=== PATIENT | female | born 1950 | race Caucasian/White ===

== ENCOUNTER 2018-03-02 00:39 | Outpatient (RCR) | payer BC, MEDICARE, SELFPAY ==
[2018-02-16] MEDS: Heparin 500 UNITS/5 ML SYRINGE IV (09:42)
[2018-02-16] MEDS: Normal Saline Flush 10 ML SYR IVP (09:43)
[2018-02-16 14:10] LABS: Abs Immature Grans 0.02 k/cumm (0.0-0.09); Absolute Basophil Count 0.02 k/cumm (0.0-0.2); Absolute Eosinophil Count 0.17 k/cumm (0.0-0.7); Absolute Lymphocyte Count 1.46 k/cumm (1.2-3.4); Absolute Monocyte Count 0.57 k/cumm (0.11-0.7); Absolute Neutrophil Count 4.63 k/cumm (1.2-6.7); Basophils % 0.3; Eosinophils % 2.5; HCT 34.3 % (36.0-46.0); HGB 11.2 g/dL (12.0-15.5); Immature Grans % 0.3; Lymphocytes % 21.3; Mean Corp. HGB Concentration 32.7 g/dL (32.0-36.0); Mean Corpuscular Hemoglobin 30.4 pg (27.0-33.0); Mean Corpuscular Volume 93.2 fL (80-95); Mean Platelet Volume 9.1 fL (8.0-11.0); Monocytes % 8.3; Neutrophils % 67.3; Platelet Count 298 x1000/uL (130-400); RBC 3.68 m/cumm (4.00-5.20); RBC Distribution Width 14.4 % (11.7-14.6); White Blood Cell Count 6.87 k/cumm (4.4-10.8)
[2018-02-16 14:25] LABS: ALT 47 U/L (12-78); AST 33 U/L (15-37); Albumin 3.7 g/dL (3.4-5.0); Alkaline Phosphatase 101 U/L (46-116); Anion Gap 9.2 mmol/L (3-11); BUN 9 mg/dL (7-18); Bilirubin, Total 0.3 mg/dL (0.2-1.0); CO2 24.8 mmol/L (21.0-32.0); CREATININE 0.81 mg/dL (0.55-1.02); Calcium 9.5 mg/dL (8.5-10.1); Chloride 100 mmol/L (98-107); Glucose 139 mg/dL (70-100); Potassium 3.7 mmol/L (3.5-5.1); Sodium 134 mmol/L (136-145); Total Protein 8.3 g/dL (6.4-8.2)
[2018-02-19 11:56] LABS: CA 19-9 18 U/mL (<35)
[2018-03-02] MEDS: Heparin 500 UNITS/5 ML SYRINGE IV (13:25)
[2018-03-02] MEDS: Normal Saline Flush 10 ML SYR IVP (13:25)
[2018-03-02 13:58] LABS: Abs Immature Grans 0.02 k/cumm (0.0-0.09); Absolute Basophil Count 0.02 k/cumm (0.0-0.2); Absolute Lymphocyte Count 1.13 k/cumm (1.2-3.4); Absolute Monocyte Count 0.42 k/cumm (0.11-0.7); Absolute Neutrophil Count 4.24 k/cumm (1.2-6.7); Basophils % 0.3; Eosinophils % 3.3; HCT 34.2 % (36.0-46.0); HGB 11.1 g/dL (12.0-15.5); Immature Grans % 0.3; Lymphocytes % 18.7; Mean Corp. HGB Concentration 32.5 g/dL (32.0-36.0); Mean Corpuscular Hemoglobin 30.2 pg (27.0-33.0); Mean Corpuscular Volume 93.2 fL (80-95); Mean Platelet Volume 9.8 fL (8.0-11.0); Neutrophils % 70.4; Platelet Count 239 x1000/uL (130-400); RBC 3.67 m/cumm (4.00-5.20); RBC Distribution Width 14.3 % (11.7-14.6); White Blood Cell Count 6.03 k/cumm (4.4-10.8)
[2018-03-02 14:15] LABS: ALT 56 U/L (12-78); AST 34 U/L (15-37); Albumin 3.5 g/dL (3.4-5.0); Alkaline Phosphatase 108 U/L (46-116); Anion Gap 10.4 mmol/L (3-11); BUN 11 mg/dL (7-18); Bilirubin, Total 0.3 mg/dL (0.2-1.0); CO2 24.6 mmol/L (21.0-32.0); CREATININE 0.83 mg/dL (0.55-1.02); Chloride 105 mmol/L (98-107); Glucose 144 mg/dL (70-100); Potassium 3.9 mmol/L (3.5-5.1); Sodium 140 mmol/L (136-145); Total Protein 7.3 g/dL (6.4-8.2)
== END 2018-03-11 23:59 | disposition home or self-care (01) ==
LOC: INF 00:39
PROVIDERS: Visit Provider Internal Medicine Hematology & Oncology
DX: C25.0 Malignant neoplasm of head of pancreas (principal); Z45.2 Encounter for adjustment and management of vascular access device
CPT/HCPCS: 36591; 80053; 85025; 86301

== ENCOUNTER 2018-03-30 02:02 | Outpatient (RCR) | payer BC, MEDICARE, SELFPAY ==
[2018-03-16] MEDS: Normal Saline Flush 10 ML SYR IVP (11:00)
[2018-03-16] MEDS: Heparin 500 UNITS/5 ML SYRINGE IV (11:05)
[2018-03-16 11:40] LABS: Abs Immature Grans 0.09 k/cumm (0.0-0.09); HGB 11.2 g/dL (12.0-15.5); Mean Corp. HGB Concentration 33.9 g/dL (32.0-36.0); Mean Corpuscular Hemoglobin 30.3 pg (27.0-33.0); Mean Corpuscular Volume 89.2 fL (80-95); Mean Platelet Volume 10.2 fL (8.0-11.0); Platelet Count 131 x1000/uL (130-400); RBC Distribution Width 13.6 % (11.7-14.6); White Blood Cell Count 8.05 k/cumm (4.4-10.8)
[2018-03-16 11:46] LABS: ALT 59 U/L (12-78); AST 31 U/L (15-37); Albumin 3.7 g/dL (3.4-5.0); Alkaline Phosphatase 101 U/L (46-116); Anion Gap 13.4 mmol/L (3-11); BUN 11 mg/dL (7-18); Bilirubin, Total 0.2 mg/dL (0.2-1.0); CO2 22.6 mmol/L (21.0-32.0); CREATININE 0.92 mg/dL (0.55-1.02); Calcium 8.9 mg/dL (8.5-10.1); Chloride 100 mmol/L (98-107); Glucose 146 mg/dL (70-100); Potassium 3.3 mmol/L (3.5-5.1); Sodium 136 mmol/L (136-145); Total Protein 7.3 g/dL (6.4-8.2)
[2018-03-16 11:58] LABS: Absolute Eosinophil Count 0.24 k/cumm (0.0-0.7); Absolute Lymphocyte Count 1.93 k/cumm (1.2-3.4); Absolute Monocyte Count 1.05 k/cumm (0.11-0.7); Absolute Neutrophil Count 4.75 k/cumm (1.2-6.7); Atypical Lymphocytes % 3
[2018-03-16 11:59] LABS: Diff Comment Manual Differential; RBC Morphology Normal
[2018-03-19 11:39] LABS: CA 19-9 43 U/mL (<35)
[2018-03-30] MEDS: Heparin 500 UNITS/5 ML SYRINGE IV (10:20)
[2018-03-30] MEDS: Normal Saline Flush 10 ML SYR IVP (10:20)
[2018-03-30 10:41] LABS: HCT 32.1 % (36.0-46.0); HGB 10.8 g/dL (12.0-15.5); Mean Corp. HGB Concentration 33.6 g/dL (32.0-36.0); Mean Corpuscular Hemoglobin 30.3 pg (27.0-33.0); Mean Corpuscular Volume 89.9 fL (80-95); Mean Platelet Volume 10.5 fL (8.0-11.0); Platelet Count 167 x1000/uL (130-400); RBC 3.57 m/cumm (4.00-5.20); RBC Distribution Width 14.8 % (11.7-14.6); White Blood Cell Count 8.45 k/cumm (4.4-10.8)
[2018-03-30 10:42] LABS: Abs Immature Grans 0.12 k/cumm (0.0-0.09)
[2018-03-30 10:58] LABS: ALT 84 U/L (12-78); AST 53 U/L (15-37); Albumin 3.5 g/dL (3.4-5.0); Alkaline Phosphatase 114 U/L (46-116); Anion Gap 13.5 mmol/L (3-11); BUN 9 mg/dL (7-18); Bilirubin, Total 0.2 mg/dL (0.2-1.0); CO2 23.5 mmol/L (21.0-32.0); CREATININE 0.92 mg/dL (0.55-1.02); Calcium 9.2 mg/dL (8.5-10.1); Chloride 101 mmol/L (98-107); Glucose 152 mg/dL (70-100); Potassium 3.5 mmol/L (3.5-5.1); Sodium 138 mmol/L (136-145); Total Protein 7.5 g/dL (6.4-8.2)
[2018-03-30 11:07] LABS: Absolute Lymphocyte Count 1.69 k/cumm (1.2-3.4); Absolute Neutrophil Count 5.66 k/cumm (1.2-6.7); Atypical Lymphocytes % 2; Nucleated RBC 1 /100WBC
[2018-03-30 11:08] LABS: Anisocytosis 1+; Diff Comment Manual Differential; Polychromasia Present
== END 2018-04-11 23:59 | disposition home or self-care (01) ==
LOC: INF 02:02
PROVIDERS: Visit Provider Internal Medicine Hematology & Oncology
DX: C25.0 Malignant neoplasm of head of pancreas (principal); Z45.2 Encounter for adjustment and management of vascular access device
CPT/HCPCS: 36591; 80053; 85025; 86301

== ENCOUNTER 2018-05-04 00:48 | Outpatient (RCR) | payer BC, MEDICARE, SELFPAY ==
[2018-04-13] MEDS: Normal Saline Flush 10 ML SYR IVP (12:29)
[2018-04-13] MEDS: Heparin 500 UNITS/5 ML SYRINGE IV (12:30)
[2018-04-13 12:37] LABS: Abs Immature Grans 0.23 k/cumm (0.0-0.09); Absolute Basophil Count 0.02 k/cumm (0.0-0.2); Absolute Eosinophil Count 0.02 k/cumm (0.0-0.7); Absolute Lymphocyte Count 1.22 k/cumm (1.2-3.4); Absolute Monocyte Count 1.47 k/cumm (0.11-0.7); Absolute Neutrophil Count 7.61 k/cumm (1.2-6.7); Basophils % 0.2; Eosinophils % 0.2; HCT 30.1 % (36.0-46.0); HGB 10.2 g/dL (12.0-15.5); Immature Grans % 2.2; Lymphocytes % 11.5; Mean Corp. HGB Concentration 33.9 g/dL (32.0-36.0); Mean Corpuscular Hemoglobin 31.1 pg (27.0-33.0); Mean Corpuscular Volume 91.8 fL (80-95); Monocytes % 13.9; Platelet Count 123 x1000/uL (130-400); RBC 3.28 m/cumm (4.00-5.20); RBC Distribution Width 16.6 % (11.7-14.6); White Blood Cell Count 10.57 k/cumm (4.4-10.8)
[2018-04-13 12:48] LABS: ALT 66 U/L (12-78); AST 36 U/L (15-37); Albumin 3.2 g/dL (3.4-5.0); Alkaline Phosphatase 126 U/L (46-116); BUN 8 mg/dL (7-18); Bilirubin, Total 0.2 mg/dL (0.2-1.0); CREATININE 0.96 mg/dL (0.55-1.02); Calcium 9.3 mg/dL (8.5-10.1); Chloride 99 mmol/L (98-107); Estimated GFR 57.97 (mL/min/1.73m2); Glucose 145 mg/dL (70-100); Potassium 3.5 mmol/L (3.5-5.1); Sodium 134 mmol/L (136-145); Total Protein 6.7 g/dL (6.4-8.2)
[2018-04-13 13:34] LABS: Diff Comment Agrees w/ Instrument
[2018-04-16 10:18] LABS: CA 19-9 36 U/mL (<35)
[2018-04-20] MEDS: Heparin 500 UNITS/5 ML SYRINGE IV (14:15)
[2018-04-20] MEDS: Normal Saline Flush 10 ML SYR IVP (14:15)
[2018-04-20 14:42] LABS: Abs Immature Grans 0.14 k/cumm (0.0-0.09); Absolute Basophil Count 0.02 k/cumm (0.0-0.2); Absolute Eosinophil Count 0.09 k/cumm (0.0-0.7); Absolute Lymphocyte Count 1.21 k/cumm (1.2-3.4); Absolute Monocyte Count 0.98 k/cumm (0.11-0.7); Absolute Neutrophil Count 7.37 k/cumm (1.2-6.7); Basophils % 0.2; Eosinophils % 0.9; HCT 29.7 % (36.0-46.0); HGB 9.7 g/dL (12.0-15.5); Immature Grans % 1.4; Lymphocytes % 12.3; Mean Corp. HGB Concentration 32.7 g/dL (32.0-36.0); Mean Corpuscular Volume 94.9 fL (80-95); Mean Platelet Volume 10.4 fL (8.0-11.0); Neutrophils % 75.2; Platelet Count 217 x1000/uL (130-400); RBC 3.13 m/cumm (4.00-5.20); RBC Distribution Width 19.2 % (11.7-14.6); White Blood Cell Count 9.81 k/cumm (4.4-10.8)
[2018-04-20 14:58] LABS: ALT 118 U/L (12-78); AST 72 U/L (15-37); Albumin 2.8 g/dL (3.4-5.0); Alkaline Phosphatase 143 U/L (46-116); Anion Gap 8.9 mmol/L (3-11); BUN 8 mg/dL (7-18); Bilirubin, Total 0.2 mg/dL (0.2-1.0); CO2 24.1 mmol/L (21.0-32.0); Calcium 8.7 mg/dL (8.5-10.1); Chloride 104 mmol/L (98-107); Glucose 132 mg/dL (70-100); Potassium 4.1 mmol/L (3.5-5.1); Sodium 137 mmol/L (136-145); Total Protein 6.2 g/dL (6.4-8.2)
[2018-04-23 12:42] LABS: CA 19-9 54 U/mL (<35)
[2018-05-04] MEDS: Heparin 500 UNITS/5 ML SYRINGE IV (14:40)
[2018-05-04] MEDS: Normal Saline Flush 10 ML SYR IVP (14:40)
[2018-05-04 14:48] LABS: HGB 9.4 g/dL (12.0-15.5); Mean Corp. HGB Concentration 32.4 g/dL (32.0-36.0); Mean Corpuscular Hemoglobin 31.2 pg (27.0-33.0); Mean Corpuscular Volume 96.3 fL (80-95); Mean Platelet Volume 11.2 fL (8.0-11.0); RBC 3.01 m/cumm (4.00-5.20); RBC Distribution Width 18.6 % (11.7-14.6); White Blood Cell Count 6.72 k/cumm (4.4-10.8)
[2018-05-04 15:02] LABS: ALT 72 U/L (12-78); AST 37 U/L (15-37); Albumin 3.1 g/dL (3.4-5.0); Alkaline Phosphatase 148 U/L (46-116); Anion Gap 12.8 mmol/L (3-11); BUN 6 mg/dL (7-18); Bilirubin, Total 0.2 mg/dL (0.2-1.0); CO2 21.2 mmol/L (21.0-32.0); CREATININE 0.68 mg/dL (0.55-1.02); Calcium 8.4 mg/dL (8.5-10.1); Chloride 104 mmol/L (98-107); Glucose 115 mg/dL (70-100); Potassium 3.4 mmol/L (3.5-5.1); Sodium 138 mmol/L (136-145); Total Protein 6.7 g/dL (6.4-8.2)
[2018-05-04 15:23] LABS: Absolute Neutrophil Count 5.38 k/cumm (1.2-6.7); Platelet Count 95 x1000/uL (130-400)
[2018-05-04 15:24] LABS: Absolute Eosinophil Count 0.13 k/cumm (0.0-0.7); Diff Comment Manual Differential; Poikilocytes 1+; Polychromasia Present
[2018-05-07 10:51] LABS: CA 19-9 45 U/mL (<35)
== END 2018-05-11 23:59 | disposition home or self-care (01) ==
LOC: INF 00:48
PROVIDERS: Visit Provider Internal Medicine Hematology & Oncology
DX: C25.0 Malignant neoplasm of head of pancreas (principal); Z45.2 Encounter for adjustment and management of vascular access device
CPT/HCPCS: 36591; 80053; 85025; 86301

== ENCOUNTER 2018-07-06 00:58 | Outpatient (RCR) | payer MEDICARE, SELFPAY ==
[2018-07-06] MEDS: Normal Saline Flush 10 ML SYR IVP (14:29)
[2018-07-06] MEDS: Heparin 500 UNITS/5 ML SYRINGE IV (14:29)
[2018-07-06 14:57] LABS: Abs Immature Grans 0.01 k/cumm (0.0-0.09); Absolute Basophil Count 0.03 k/cumm (0.0-0.2); Absolute Eosinophil Count 0.06 k/cumm (0.0-0.7); Absolute Lymphocyte Count 1.36 k/cumm (1.2-3.4); Absolute Neutrophil Count 3.54 k/cumm (1.2-6.7); Basophils % 0.5; Eosinophils % 1.1; HCT 33.2 % (36.0-46.0); Immature Grans % 0.2; Lymphocytes % 24.7; Mean Corp. HGB Concentration 33.1 g/dL (32.0-36.0); Mean Corpuscular Hemoglobin 32.4 pg (27.0-33.0); Mean Corpuscular Volume 97.6 fL (80-95); Mean Platelet Volume 10.8 fL (8.0-11.0); Monocytes % 9.1; Neutrophils % 64.4; Platelet Count 201 x1000/uL (130-400); RBC Distribution Width 13.4 % (11.7-14.6)
[2018-07-06 15:10] LABS: ALT 62 U/L (12-78); AST 86 U/L (15-37); Albumin 2.9 g/dL (3.4-5.0); Alkaline Phosphatase 156 U/L (46-116); Anion Gap 11.7 mmol/L (3-11); BUN 7 mg/dL (7-18); Bilirubin, Total 0.4 mg/dL (0.2-1.0); CO2 23.3 mmol/L (21.0-32.0); CREATININE 0.68 mg/dL (0.55-1.02); Calcium 8.8 mg/dL (8.5-10.1); Chloride 104 mmol/L (98-107); Glucose 99 mg/dL (70-100); Potassium 4.1 mmol/L (3.5-5.1); Sodium 139 mmol/L (136-145); Total Protein 6.9 g/dL (6.4-8.2)
[2018-07-09 10:46] LABS: CA 19-9 109 U/mL (<35)
== END 2018-07-12 23:59 | disposition home or self-care (01) ==
LOC: INF 00:58
PROVIDERS: Visit Provider Internal Medicine Hematology & Oncology
DX: C25.0 Malignant neoplasm of head of pancreas (principal); Z45.2 Encounter for adjustment and management of vascular access device
CPT/HCPCS: 36591; 80053; 85025; 86301

== ENCOUNTER 2018-08-31 01:32 | Outpatient (RCR) | payer MEDICARE, SELFPAY | END 2018-09-09 23:59 | disposition home or self-care (01) | LOC: INF 01:32 | PROVIDERS: Visit Provider Internal Medicine Hematology & Oncology | DX: R69 Illness, unspecified (principal) ==

== ENCOUNTER 2018-09-20 00:55 | Outpatient (RCR) | payer MEDICARE, SELFPAY ==
[2018-09-20] MEDS: Heparin 500 UNITS/5 ML SYRINGE IV (14:56)
[2018-09-20 15:08] LABS: Abs Immature Grans 0.01 k/cumm (0.0-0.09); Absolute Basophil Count 0.02 k/cumm (0.0-0.2); Absolute Eosinophil Count 0.08 k/cumm (0.0-0.7); Absolute Monocyte Count 0.48 k/cumm (0.11-0.7); Absolute Neutrophil Count 2.73 k/cumm (1.2-6.7); Basophils % 0.4; Eosinophils % 1.8; HCT 33.8 % (36.0-46.0); HGB 11.2 g/dL (12.0-15.5); Immature Grans % 0.2; Lymphocytes % 26.5; Mean Corp. HGB Concentration 33.1 g/dL (32.0-36.0); Mean Corpuscular Hemoglobin 31.4 pg (27.0-33.0); Mean Corpuscular Volume 94.7 fL (80-95); Mean Platelet Volume 10.3 fL (8.0-11.0); Monocytes % 10.6; Neutrophils % 60.5; Platelet Count 188 x1000/uL (130-400); RBC 3.57 m/cumm (4.00-5.20); RBC Distribution Width 12.4 % (11.7-14.6); White Blood Cell Count 4.52 k/cumm (4.4-10.8)
[2018-09-20 15:24] LABS: ALT 96 U/L (12-78); AST 62 U/L (15-37); Albumin 3.7 g/dL (3.4-5.0); Alkaline Phosphatase 154 U/L (46-116); Anion Gap 11.5 mmol/L (3-11); BUN 12 mg/dL (7-18); Bilirubin, Total 0.3 mg/dL (0.2-1.0); CO2 22.5 mmol/L (21.0-32.0); CREATININE 0.77 mg/dL (0.55-1.02); Calcium 8.5 mg/dL (8.5-10.1); Chloride 104 mmol/L (98-107); Glucose 191 mg/dL (70-100); Potassium 3.7 mmol/L (3.5-5.1); Sodium 138 mmol/L (136-145); Total Protein 7.4 g/dL (6.4-8.2)
[2018-09-20 16:26] LABS: Hemoglobin A1C 6.8 % (4.5-6.2)
[2018-09-21 11:54] LABS: CA 19-9 2964 U/mL (<35)
== END 2018-10-09 23:59 | disposition home or self-care (01) ==
LOC: INF 00:55
PROVIDERS: Visit Provider Internal Medicine Hematology & Oncology
DX: C25.0 Malignant neoplasm of head of pancreas (principal); Z45.2 Encounter for adjustment and management of vascular access device
CPT/HCPCS: 36591; 80053; 83036; 85025; 86301

== ENCOUNTER 2019-02-01 03:07 | Outpatient (RCR) | payer MEDICARE, BC, SELFPAY ==
[2019-01-11] MEDS: Normal Saline Flush 10 ML SYR IVP (08:30)
[2019-01-11 09:02] LABS: Abs Immature Grans 0.05 k/cumm (0.0-0.09); Absolute Basophil Count 0.01 k/cumm (0.0-0.2); Absolute Eosinophil Count 0.08 k/cumm (0.0-0.7); Absolute Lymphocyte Count 0.82 k/cumm (1.2-3.4); Absolute Monocyte Count 0.68 k/cumm (0.11-0.7); Basophils % 0.1; Eosinophils % 0.6; HCT 37.3 % (36.0-46.0); HGB 12.2 g/dL (12.0-15.5); Immature Grans % 0.4; Lymphocytes % 5.9; Mean Corp. HGB Concentration 32.7 g/dL (32.0-36.0); Mean Corpuscular Hemoglobin 31.3 pg (27.0-33.0); Mean Corpuscular Volume 95.6 fL (80-95); Mean Platelet Volume 10.4 fL (8.0-11.0); Monocytes % 4.9; Neutrophils % 88.1; Platelet Count 237 x1000/uL (130-400); RBC Distribution Width 14.6 % (11.7-14.6); White Blood Cell Count 13.95 k/cumm (4.4-10.8)
[2019-01-11 09:03] LABS: Absolute Neutrophil Count 12.29 k/cumm (1.2-6.7)
[2019-01-11 09:20] LABS: ALT 94 U/L (12-78); AST 35 U/L (15-37); Albumin 3.4 g/dL (3.4-5.0); Alkaline Phosphatase 146 U/L (46-116); Anion Gap 9.2 mmol/L (3-11); BUN 11 mg/dL (7-18); Bilirubin, Total 0.7 mg/dL (0.2-1.0); CO2 26.8 mmol/L (21.0-32.0); CREATININE 0.71 mg/dL (0.55-1.02); Calcium 8.9 mg/dL (8.5-10.1); Chloride 99 mmol/L (98-107); Glucose 184 mg/dL (70-100); Potassium 4.3 mmol/L (3.5-5.1); Sodium 135 mmol/L (136-145); Total Protein 7.2 g/dL (6.4-8.2)
[2019-01-18] MEDS: Normal Saline Flush 10 ML SYR IVP (12:20)
[2019-01-18 12:45] LABS: Abs Immature Grans 0.02 k/cumm (0.0-0.09); Absolute Basophil Count 0.01 k/cumm (0.0-0.2); Absolute Eosinophil Count 0.02 k/cumm (0.0-0.7); Absolute Lymphocyte Count 0.49 k/cumm (1.2-3.4); Absolute Neutrophil Count 3.15 k/cumm (1.2-6.7); Basophils % 0.3; Eosinophils % 0.5; HCT 31.3 % (36.0-46.0); HGB 10.6 g/dL (12.0-15.5); Immature Grans % 0.5; Lymphocytes % 12.3; Mean Corp. HGB Concentration 33.9 g/dL (32.0-36.0); Mean Corpuscular Hemoglobin 31.5 pg (27.0-33.0); Mean Corpuscular Volume 92.9 fL (80-95); Mean Platelet Volume 11.8 fL (8.0-11.0); Monocytes % 7.5; Neutrophils % 78.9; Platelet Count 102 x1000/uL (130-400); RBC 3.37 m/cumm (4.00-5.20); RBC Distribution Width 13.8 % (11.7-14.6); White Blood Cell Count 3.99 k/cumm (4.4-10.8)
[2019-01-18 13:02] LABS: ALT 77 U/L (12-78); AST 31 U/L (15-37); Albumin 2.9 g/dL (3.4-5.0); Alkaline Phosphatase 146 U/L (46-116); Anion Gap 14.5 mmol/L (3-11); BUN 7 mg/dL (7-18); Bilirubin, Total 0.4 mg/dL (0.2-1.0); CO2 20.5 mmol/L (21.0-32.0); CREATININE 0.77 mg/dL (0.55-1.02); Calcium 9.1 mg/dL (8.5-10.1); Chloride 100 mmol/L (98-107); Glucose 192 mg/dL (70-100); Potassium 3.5 mmol/L (3.5-5.1); Sodium 135 mmol/L (136-145); Total Protein 7.1 g/dL (6.4-8.2)
[2019-01-21 14:01] LABS: CA 19-9 35027 U/mL (<35)
[2019-02-01] MEDS: Normal Saline Flush 10 ML SYR IVP (08:45)
[2019-02-01 09:08] LABS: Abs Immature Grans 0.05 k/cumm (0.0-0.09); Absolute Basophil Count 0.03 k/cumm (0.0-0.2); Absolute Eosinophil Count 0.02 k/cumm (0.0-0.7); Absolute Lymphocyte Count 0.82 k/cumm (1.2-3.4); Absolute Monocyte Count 0.72 k/cumm (0.11-0.7); Absolute Neutrophil Count 2.99 k/cumm (1.2-6.7); Basophils % 0.6; Eosinophils % 0.4; Immature Grans % 1.1; Lymphocytes % 17.7; Mean Corp. HGB Concentration 32.4 g/dL (32.0-36.0); Mean Corpuscular Hemoglobin 31.2 pg (27.0-33.0); Mean Corpuscular Volume 96.1 fL (80-95); Mean Platelet Volume 10.4 fL (8.0-11.0); Monocytes % 15.6; Neutrophils % 64.6; Platelet Count 309 x1000/uL (130-400); RBC 3.85 m/cumm (4.00-5.20); RBC Distribution Width 16.2 % (11.7-14.6); White Blood Cell Count 4.63 k/cumm (4.4-10.8)
[2019-02-01 09:16] LABS: ALT 42 U/L (12-78); AST 36 U/L (15-37); Albumin 3.1 g/dL (3.4-5.0); Alkaline Phosphatase 138 U/L (46-116); Anion Gap 13.3 mmol/L (3-11); BUN 7 mg/dL (7-18); Bilirubin, Total 0.6 mg/dL (0.2-1.0); CO2 23.7 mmol/L (21.0-32.0); CREATININE 0.71 mg/dL (0.55-1.02); Calcium 8.5 mg/dL (8.5-10.1); Chloride 102 mmol/L (98-107); Glucose 194 mg/dL (70-100); Potassium 3.5 mmol/L (3.5-5.1); Sodium 139 mmol/L (136-145); Total Protein 6.8 g/dL (6.4-8.2)
== END 2019-02-09 23:59 | disposition home or self-care (01) ==
LOC: INF 03:07
PROVIDERS: Visit Provider Internal Medicine Hematology & Oncology
DX: C25.0 Malignant neoplasm of head of pancreas (principal); Z45.2 Encounter for adjustment and management of vascular access device
CPT/HCPCS: 36591; 80053; 85025; 86301

== ENCOUNTER 2019-03-01 03:09 | Outpatient (RCR) | payer MEDICARE, BC, SELFPAY ==
[2019-02-15] MEDS: Normal Saline Flush 10 ML SYR IVP (07:43)
[2019-02-15 07:51] LABS: Abs Immature Grans 0.03 k/cumm (0.0-0.09); Absolute Basophil Count 0.02 k/cumm (0.0-0.2); Absolute Eosinophil Count 0.07 k/cumm (0.0-0.7); Absolute Lymphocyte Count 0.71 k/cumm (1.2-3.4); Absolute Monocyte Count 0.75 k/cumm (0.11-0.7); Absolute Neutrophil Count 7.83 k/cumm (1.2-6.7); Basophils % 0.2; Eosinophils % 0.7; HGB 12.3 g/dL (12.0-15.5); Immature Grans % 0.3; Lymphocytes % 7.5; Mean Corp. HGB Concentration 32.4 g/dL (32.0-36.0); Mean Corpuscular Hemoglobin 31.5 pg (27.0-33.0); Mean Corpuscular Volume 97.2 fL (80-95); Mean Platelet Volume 10.3 fL (8.0-11.0); Neutrophils % 83.3; Platelet Count 290 x1000/uL (130-400); RBC 3.91 m/cumm (4.00-5.20); RBC Distribution Width 16.9 % (11.7-14.6); White Blood Cell Count 9.41 k/cumm (4.4-10.8)
[2019-02-15 08:11] LABS: ALT 42 U/L (14-59); AST 32 U/L (15-37); Alkaline Phosphatase 135 U/L (46-116); Anion Gap 8.1 mmol/L (3-11); BUN 5 mg/dL (7-18); Bilirubin, Total 0.5 mg/dL (0.2-1.0); CO2 28.9 mmol/L (21.0-32.0); CREATININE 0.75 mg/dL (0.55-1.02); Calcium 8.6 mg/dL (8.5-10.1); Chloride 101 mmol/L (98-107); Glucose 120 mg/dL (70-100); Potassium 3.9 mmol/L (3.5-5.1); Sodium 138 mmol/L (136-145); Total Protein 6.6 g/dL (6.4-8.2)
[2019-02-18 14:25] LABS: CA 19-9 >70000 U/mL (<35)
[2019-03-01] MEDS: Normal Saline Flush 10 ML SYR IVP (10:45)
[2019-03-01 11:02] LABS: Abs Immature Grans 0.07 k/cumm (0.0-0.09); Absolute Basophil Count 0.02 k/cumm (0.0-0.2); Absolute Eosinophil Count 0.04 k/cumm (0.0-0.7); Absolute Lymphocyte Count 0.74 k/cumm (1.2-3.4); Absolute Monocyte Count 0.67 k/cumm (0.11-0.7); Absolute Neutrophil Count 7.18 k/cumm (1.2-6.7); Basophils % 0.2; Eosinophils % 0.5; HCT 34.1 % (36.0-46.0); HGB 11.2 g/dL (12.0-15.5); Immature Grans % 0.8; Lymphocytes % 8.5; Mean Corp. HGB Concentration 32.8 g/dL (32.0-36.0); Mean Corpuscular Hemoglobin 32.1 pg (27.0-33.0); Mean Corpuscular Volume 97.7 fL (80-95); Mean Platelet Volume 9.7 fL (8.0-11.0); Monocytes % 7.7; Neutrophils % 82.3; Platelet Count 291 x1000/uL (130-400); RBC 3.49 m/cumm (4.00-5.20); RBC Distribution Width 18.1 % (11.7-14.6); White Blood Cell Count 8.72 k/cumm (4.4-10.8)
[2019-03-01 11:16] LABS: ALT 85 U/L (14-59); AST 47 U/L (15-37); Albumin 3.1 g/dL (3.4-5.0); Alkaline Phosphatase 161 U/L (46-116); Anion Gap 9.3 mmol/L (3-11); BUN 14 mg/dL (7-18); Bilirubin, Total 0.5 mg/dL (0.2-1.0); CO2 24.7 mmol/L (21.0-32.0); CREATININE 0.69 mg/dL (0.55-1.02); Calcium 8.6 mg/dL (8.5-10.1); Chloride 100 mmol/L (98-107); Glucose 154 mg/dL (70-100); Potassium 4.4 mmol/L (3.5-5.1); Sodium 134 mmol/L (136-145); Total Protein 6.8 g/dL (6.4-8.2)
== END 2019-03-11 23:59 | disposition home or self-care (01) ==
LOC: INF 03:09
PROVIDERS: Visit Provider Internal Medicine Hematology & Oncology
DX: C25.0 Malignant neoplasm of head of pancreas (principal); Z45.2 Encounter for adjustment and management of vascular access device
CPT/HCPCS: 36591; 80053; 85025; 86301

== ENCOUNTER 2019-04-05 02:28 | Outpatient (RCR) | payer MEDICARE, BC, SELFPAY ==
[2019-03-15 08:51] LABS: Abs Immature Grans 0.05 k/cumm (0.0-0.09); Absolute Basophil Count 0.02 k/cumm (0.0-0.2); Absolute Eosinophil Count 0.07 k/cumm (0.0-0.7); Absolute Lymphocyte Count 1.13 k/cumm (1.2-3.4); Absolute Monocyte Count 0.74 k/cumm (0.11-0.7); Absolute Neutrophil Count 2.95 k/cumm (1.2-6.7); Basophils % 0.4; Eosinophils % 1.4; HCT 32.7 % (36.0-46.0); HGB 10.8 g/dL (12.0-15.5); Lymphocytes % 22.8; Mean Corpuscular Hemoglobin 32.4 pg (27.0-33.0); Mean Corpuscular Volume 98.2 fL (80-95); Mean Platelet Volume 9.6 fL (8.0-11.0); Monocytes % 14.9; Neutrophils % 59.5; Platelet Count 248 x1000/uL (130-400); RBC 3.33 m/cumm (4.00-5.20); RBC Distribution Width 18.1 % (11.7-14.6); White Blood Cell Count 4.96 k/cumm (4.4-10.8)
[2019-03-15 09:08] LABS: ALT 65 U/L (14-59); AST 48 U/L (15-37); Alkaline Phosphatase 154 U/L (46-116); Anion Gap 11.2 mmol/L (3-11); BUN 8 mg/dL (7-18); Bilirubin, Total 0.3 mg/dL (0.2-1.0); CO2 23.8 mmol/L (21.0-32.0); CREATININE 0.65 mg/dL (0.55-1.02); Calcium 8.5 mg/dL (8.5-10.1); Chloride 102 mmol/L (98-107); Glucose 106 mg/dL (70-100); Potassium 4.2 mmol/L (3.5-5.1); Sodium 137 mmol/L (136-145); Total Protein 6.7 g/dL (6.4-8.2)
[2019-03-15 09:24] LABS: Anisocytosis 1+; Diff Comment RBC Morph Reviewed
[2019-03-15] MEDS: Normal Saline Flush 10 ML SYR IVP (10:00)
[2019-03-15] MEDS: Heparin 500 UNITS/5 ML SYRINGE IV (10:04)
[2019-03-18 09:50] LABS: CEA 33.4 ng/ml
[2019-03-29] MEDS: Normal Saline Flush 10 ML SYR IVP (09:35)
[2019-03-29 09:57] LABS: Abs Immature Grans 0.05 k/cumm (0.0-0.09); Absolute Basophil Count 0.03 k/cumm (0.0-0.2); Absolute Eosinophil Count 0.08 k/cumm (0.0-0.7); Absolute Lymphocyte Count 0.84 k/cumm (1.2-3.4); Absolute Monocyte Count 0.63 k/cumm (0.11-0.7); Absolute Neutrophil Count 5.47 k/cumm (1.2-6.7); Basophils % 0.4; Eosinophils % 1.1; HCT 33.1 % (36.0-46.0); HGB 10.9 g/dL (12.0-15.5); Immature Grans % 0.7; Lymphocytes % 11.8; Mean Corp. HGB Concentration 32.9 g/dL (32.0-36.0); Mean Corpuscular Hemoglobin 32.9 pg (27.0-33.0); Mean Platelet Volume 10.8 fL (8.0-11.0); Monocytes % 8.9; Neutrophils % 77.1; Platelet Count 199 x1000/uL (130-400); RBC 3.31 m/cumm (4.00-5.20); RBC Distribution Width 18.1 % (11.7-14.6)
[2019-03-29 10:10] LABS: ALT 40 U/L (14-59); AST 38 U/L (15-37); Albumin 2.9 g/dL (3.4-5.0); Alkaline Phosphatase 130 U/L (46-116); BUN 8 mg/dL (7-18); Bilirubin, Total 0.4 mg/dL (0.2-1.0); CREATININE 0.85 mg/dL (0.55-1.02); Calcium 8.3 mg/dL (8.5-10.1); Chloride 102 mmol/L (98-107); Glucose 143 mg/dL (70-100); Potassium 4.3 mmol/L (3.5-5.1); Sodium 135 mmol/L (136-145); Total Protein 6.8 g/dL (6.4-8.2)
[2019-04-01 13:27] LABS: CA 19-9 >70000 U/mL (<35)
[2019-04-05] MEDS: Normal Saline Flush 10 ML SYR IVP (09:45)
[2019-04-05 09:58] LABS: Abs Immature Grans 0.07 k/cumm (0.0-0.09); Absolute Basophil Count 0.03 k/cumm (0.0-0.2); Absolute Eosinophil Count 0.09 k/cumm (0.0-0.7); Absolute Lymphocyte Count 0.72 k/cumm (1.2-3.4); Absolute Monocyte Count 0.59 k/cumm (0.11-0.7); Basophils % 0.5; Eosinophils % 1.6; HCT 33.5 % (36.0-46.0); HGB 10.8 g/dL (12.0-15.5); Immature Grans % 1.2; Lymphocytes % 12.4; Mean Corp. HGB Concentration 32.2 g/dL (32.0-36.0); Mean Corpuscular Hemoglobin 32.3 pg (27.0-33.0); Mean Corpuscular Volume 100.3 fL (80-95); Mean Platelet Volume 9.8 fL (8.0-11.0); Monocytes % 10.2; Neutrophils % 74.1; Platelet Count 317 x1000/uL (130-400); RBC 3.34 m/cumm (4.00-5.20)
[2019-04-05 10:20] LABS: ALT 38 U/L (14-59); AST 30 U/L (15-37); Albumin 2.8 g/dL (3.4-5.0); Alkaline Phosphatase 152 U/L (46-116); Anion Gap 11.3 mmol/L (3-11); BUN 5 mg/dL (7-18); Bilirubin, Total 0.4 mg/dL (0.2-1.0); CO2 20.7 mmol/L (21.0-32.0); CREATININE 0.69 mg/dL (0.55-1.02); Chloride 104 mmol/L (98-107); Glucose 140 mg/dL (70-100); Potassium 4.1 mmol/L (3.5-5.1); Sodium 136 mmol/L (136-145); Total Protein 6.4 g/dL (6.4-8.2)
[2019-04-08 14:56] LABS: CA 19-9 >70000 U/mL (<35)
== END 2019-04-11 23:59 | disposition home or self-care (01) ==
LOC: INF 02:28
PROVIDERS: Visit Provider Internal Medicine Hematology & Oncology
DX: C25.0 Malignant neoplasm of head of pancreas (principal); Z45.2 Encounter for adjustment and management of vascular access device
CPT/HCPCS: 36591; 80053; 82378; 85025; 86301

== ENCOUNTER 2019-04-19 02:22 | Outpatient (RCR) | payer MEDICARE, BC, SELFPAY ==
[2019-04-19] MEDS: Normal Saline Flush 10 ML SYR IVP (09:30)
[2019-04-19 09:55] LABS: Abs Immature Grans 0.05 k/cumm (0.0-0.09); Absolute Basophil Count 0.02 k/cumm (0.0-0.2); Absolute Eosinophil Count 0.05 k/cumm (0.0-0.7); Absolute Lymphocyte Count 0.99 k/cumm (1.2-3.4); Absolute Monocyte Count 0.83 k/cumm (0.11-0.7); Basophils % 0.2; Eosinophils % 0.5; HCT 35.8 % (36.0-46.0); HGB 11.5 g/dL (12.0-15.5); Immature Grans % 0.5; Lymphocytes % 10.8; Mean Corp. HGB Concentration 32.1 g/dL (32.0-36.0); Mean Corpuscular Hemoglobin 33.2 pg (27.0-33.0); Mean Corpuscular Volume 103.5 fL (80-95); Mean Platelet Volume 10.6 fL (8.0-11.0); Monocytes % 9.1; Neutrophils % 78.9; Platelet Count 247 x1000/uL (130-400); RBC 3.46 m/cumm (4.00-5.20); RBC Distribution Width 16.8 % (11.7-14.6); White Blood Cell Count 9.14 k/cumm (4.4-10.8)
[2019-04-19 10:07] LABS: ALT 41 U/L (14-59); AST 33 U/L (15-37); Albumin 2.9 g/dL (3.4-5.0); Alkaline Phosphatase 152 U/L (46-116); Anion Gap 10.7 mmol/L (3-11); BUN 10 mg/dL (7-18); Bilirubin, Total 0.4 mg/dL (0.2-1.0); CO2 21.3 mmol/L (21.0-32.0); CREATININE 0.84 mg/dL (0.55-1.02); Calcium 8.4 mg/dL (8.5-10.1); Chloride 103 mmol/L (98-107); Glucose 192 mg/dL (70-100); Potassium 4.3 mmol/L (3.5-5.1); Sodium 135 mmol/L (136-145); Total Protein 6.4 g/dL (6.4-8.2)
[2019-04-24 14:05] LABS: CA 19-9 >70000 U/mL (<35)
== END 2019-04-23 23:59 | disposition home or self-care (01) ==
LOC: INF 02:22
PROVIDERS: Visit Provider Internal Medicine Hematology & Oncology
DX: C25.0 Malignant neoplasm of head of pancreas (principal); Z45.2 Encounter for adjustment and management of vascular access device
CPT/HCPCS: 36591; 80053; 85025; 86301